=== PATIENT | male | born 1955 | race Two or more races ===

== ENCOUNTER 2017-02-10 11:48 | Emergency (ER) | payer SELFPAY ==
[~2017-02-10] VITALS: Ht 165.1 cm; Wt 81.7 kg
[2017-02-10] MEDS ORDERED: ONDANSETRON ODT 4 MG ONE (12:13)
[2017-02-10] MEDS ORDERED: MECLIZINE CHEWABLE 25 MG TAB ONE ×2 (12:13→16:34)
[2017-02-10] MEDS ORDERED: MECLIZINE CHEWABLE 25 MG TAB PO ONE ×2 (12:30→16:00)
[2017-02-10] MEDS ORDERED: ONDANSETRON ODT 8 MG PO ONE (12:30)
[2017-02-10] MEDS ORDERED: PLEASE ENTER ALLERGIES MC SCH ×2 (12:30)
[2017-02-10 12:52] LABS: BLOOD UREA NITROGEN 10 mg/dL (7-18)
[2017-02-10 16:44] VITALS: BP 125/80
== END 2017-02-10 16:46 | disposition home or self-care (01) ==
LOC: ED 16:40
DX: R42 Dizziness and giddiness (principal)
CPT/HCPCS: 36415; 80048; 82040; 85025; 93005; 99285; Q0162; 96374